=== PATIENT | male | born 1945 | race Two or more races ===

== ENCOUNTER 2025-05-20 16:44 | Emergency (ER) | payer MEDICARE, MEDICAID, SELFPAY ==
[2025-05-20] VITALS (8 sets, daily range): BP systolic 147–168; BP diastolic 77–91; PULSE 61–114; RESP 16–19; TEMP 36.4–36.7; O2SAT 0–97; BMI 28.2
--- NOTE | 2025-05-20 16:51 | XR_ITS ---
Examination: CT cervical spine without contrast 2-D sagittal reconstructions 2-D coronal reconstructions 3-D reconstructions. Date and time: May 20, 2025, 1739 hours INDICATIONS: Patient fell today with injury to the neck, neck pain CTDI:vol (mGy) 13.6 DLP: (mGycm) 293 Technique: Multiple 2 mm axial sections of the cervical spine have been obtained. The coronal and sagittal reconstructions have been obtained. 3-D reconstructions have been obtained. Low dose protocols were performed. One or more of the following dose reduction techniques were used; automated exposure control, adjustment of the mA and/or KV according to patient size, use of iterative reconstruction technique. Findings: Axial sections demonstrate intact base of the skull. C1 exhibit satisfactory relationship to the odontoid. No acute cervical vertebral body fracture seen. Alignment posterior spinous processes satisfactory. Impression: No acute cervical fracture.
--- NOTE | 2025-05-20 16:51 | XR_ITS ---
Examination: CT brain head without contrast. 2-D sagittal coronal reconstructions Date and time of exam: May 20, 2025, 1737 hours INDICATIONS: Patient fell today with injury to the head, head pain CTDI: vol (mGy): 47.1 DLP: (mGycm): 958 Technique: Multiple CT axial sections of the brain have been obtained, 5 mm slice thickness. Contrast has not been administered. 2-D sagittal, coronal reconstructions have been obtained Low dose protocols were performed. One or more of the following dose reduction techniques were used; automated exposure control, adjustment of the mA and/or KV according to patient size, use of iterative reconstruction technique. Findings: No significant ventricular enlargement. Intra-axial or extra-axial hemorrhage density is not seen. No mass effect or midline shift Basal cisterns are not remarkable. Fourth ventricle is midline. Cranial vault intact. Impression: Negative for acute hemorrhage, mass effect or midline shift
--- NOTE | 2025-05-20 16:51 | XR_ITS ---
Examination: Left hip AP, lateral, AP pelvis 3 views Technique: Hip AP lateral, AP pelvis, 3 views Exam date and time: May 20, 2025, 1709 hours INDICATIONS: Ground-level fall with injury to the left hip, left hip pain FINDINGS: No acute left hip fracture There is a fracture of the medial wall of the acetabulum with up to 12 mm offset of the main fracture fragments There is a fracture of the left inferior pubic ramus Healed right hip fracture IMPRESSION: Displaced fracture medial wall left acetabulum with medial protrusion of the left femoral head Fracture left inferior pubic ramus
--- NOTE | 2025-05-20 16:52 | PD.EDFALL ---
ED Fall Injury RME/HPI General Chief Complaint: Fall Stated Complaint: FALL Time Seen by Provider: 05/20/25 16:47 Arrival date/time: 05/20/25 16:44 80-year-old male patient with significant history of hypertension, chronic A-fib, on Eliquis, was brought in by EMS for evaluation regarding ground-level fall. Patient missed a step and landed on his left hip resulting to pain, severity severe. Patient also complained of contusion to the left forehead no LOC no nausea no vomiting. Denies any neck pain chest pain back pain or abdominal pain. No medication was taken prior to ER visit. Related Data Home Medications ?Medication ?Instructions ?Recorded ?Confirmed tamsulosin 0.4 mg capsule (Flomax) 0.4 mg PO QDAY ##0 02/12/17 09/12/22 finasteride 5 mg tablet 5 mg PO QDAY 01/26/19 09/12/22 amlodipine 5 mg tablet 5 mg PO QDAY 09/03/22 09/12/22 enalapril maleate 10 mg tablet 10 mg PO QDAY 09/03/22 09/12/22 hydrocodone 5 mg-acetaminophen 325 1 tab PO BID PRN Pain 09/03/22 09/12/22 mg tablet Previous Rx's ?Medication ?Instructions ?Recorded apixaban 5 mg tablet (Eliquis) 5 mg PO BID #30 tabs 07/06/22 Held on 09/12/22. Instructions: Resume on 09/14/22. Joseede kelli la primera dosis. Allergies Allergy/AdvReac Type Severity Reaction Status Date / Time bee pollen Allergy Severe Anaphylaxis Verified 09/01/22 10:18 Review of Systems Review of Systems Narrative Review of Systems: Review of system reviewed and within normal limits except mentioned in HPI ED Exam Narrative Physical exam: VITAL SIGNS: Reviewed. GENERAL APPEARANCE: Alert and interactive, follows commands, no acute distress, HEAD AND FACE: Left forehead contusion ENT: PERRL, pink conjunctivitis, eyelid no trauma, Mucous membrane moist. NECK: Supple, nontender, no nuchal rigidity. CHEST: No tenderness, no crepitus, no paradoxical movement, no retractions. LUNGS: Clear, well ventilated, symmetric, no rales, no wheezing, no ronchi, no stridor, good breath sounds bilaterally. HEART: Regular rate, regular rhythm, no murmur, no gallops. ABDOMEN: Soft, positive bowel sounds, nondistended, no guarding, nontender, no rebound, no masses, RECTAL: Deferred. GENITAL: Deferred. NEUROLOGICAL: Gross motor function intact sensory function intact, Appropriate for age. MUSCULOSKELETAL: low back nontender, full range of motion. EXTREMITIES: Left hip tenderness, swelling, shortening, with limitation range of motion. Distal neurovascular status intact., Right pain mild swelling, full range of motion of the time SKIN: Color pink, dry, no rash, no lacerations, no abrasions, no contusions. LYMPHATICS: Deferred. Course Quality Measures none Orders Category Date Time Status Splint / Immobilizer STAT Care 05/20/25 21:[address] cervical spine wo con Stat Exams 05/20/25 16:[address] head/brain wo con Stat Exams 05/20/25 16:51 Completed XR hand RT 2V Stat Exams 05/20/25 17:59 Completed XR hip LT w pelvis 2-3V Stat Exams 05/20/25 16:51 Completed HYDROmorphone INJ [Dilaudid Inj] Med 05/20/25 18:03 Discontinued 1 mg IVP X1 ONE Morphine* Inj Med 05/20/25 16:52 Discontinued 4 mg IVP X1 ONE Vital Signs Vital signs: Vital Signs Temperature 97.6 F 05/20/25 16:46 Pulse Rate 98 05/20/25 16:46 Respiratory Rate 17 05/20/25 16:46 Blood Pressure 168/91 H 05/20/25 16:46 Pulse Oximetry (%) 95 05/20/25 16:46 Oxygen Delivery Method Room Air 05/20/25 16:46 Fall MDM Narrative MDM Narrative:: 80-year-old male patient with significant history of hypertension, chronic A-fib, on Eliquis, was brought in by EMS for evaluation regarding ground-level fall. Patient missed a step and landed on his left hip resulting to pain, severity severe. Patient also complained of contusion to the left forehead no LOC no nausea no vomiting. Denies any neck pain chest pain back pain or abdominal pain. No medication was taken prior to ER visit. CT scan of the head came back unremarkable. CT scan of the neck came back unremarkable. 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 X-ray of the right thumb showed small intra-articular fracture of the thumb results discussed with the family. Thumb spica brace was applied distal neurovascular status intact post application of thumb spica brace Patient is to be transferred to trauma center with orthopedic trauma available. None Plan of care discussed with the family who agrees to be transferred. Patient was accepted to [facility] Patient data External records reviewed:: None Clinical information provided by:: patient and family Social determinants that could affect healthcare access:: none Patient has the following chronic illnesses:: Hypertension chronic A-fib How is presenting disease/condition affected by chronic disease/condition?: uneffected by Evaluation data The following diagnostics were reviewed and interpreted by me:: radiology exam(s) Lab and/or radiology exams considered but not ordered:: None Interpretation Summary: See above Medications / Prescriptions Medications or Prescriptions considered but not ordered:: None Medication administrations:: Medication Administration History Discontinued Medications Hydromorphone HCl (Hydromorphone Inj 2 Mg/Ml Vial) 1 mg IVP X1 ONE Stop: 05/20/25 18:04 Last Admin: 05/20/25 18:15 Dose: 1 mg Documented By: MARCO A Morphine Sulfate (Morphine Sulf Inj 4 Mg/Ml Vial) 4 mg IVP X1 ONE Stop: 05/20/25 16:53 Last Admin: 05/20/25 17:01 Dose: 4 mg Documented By: MARCO A Morphine, Dilaudid Consultations Consultation(s) initiated? (list below): No Diagnosis Fall Differential Diagnosis: other (Fall, acetabular fracture, hip pain, thumb pain,) Most likely diagnosis given after review of the tests above:: Fall, acetabular fracture with protrusio acetabuli,, thumb fracture Admission Indicated Admission indicated?: not indicated (Transferred) Admission Request Was there a request for admission?: No Disposition Plan Disposition Plan: Transfer Discharge Plan Plan Patient Disposition: [facility] Acute Care [facility] Pt Being Transferred to: [facility] Prescriptions/Referrals Prescriptions/Med Rec: No Action tamsulosin [Flomax] 0.4 MG capsule,extended release 24hr 0.4 mg PO QDAY Qty: 0 finasteride 5 mg Tablet 5 mg PO QDAY Eliquis 5 mg tablet 5 mg PO BID Qty: 30 0RF enalapril maleate 10 mg Tablet 10 mg PO QDAY amlodipine 5 mg Tablet 5 mg PO QDAY hydrocodone-acetaminophen 5-325 mg tablet 1 tab PO BID PRN (Reason: Pain) Referrals: Fe Jackson PA-C [Primary Care Provider, Family Practice] - In 1 week Problem List Clinical Impression: Fall, Acetabulum fracture, left, Fracture of thumb Patient/Caregiver Discharge Instructions Print Language: Faroese Stand Alone Forms: Mend[employer] Award Info., Patient Portal Info Letter
[2025-05-20] MEDS: MORPHINE SULF INJ 4 MG/ML VIAL IVP (17:01)
--- NOTE | 2025-05-20 17:59 | XR_ITS ---
EXAMINATION: Right hand 2 views TECHNIQUE: AP lateral right hand 2 views INDICATIONS: Patient fell today with injury to the first digit, first digit pain. FINDINGS: Small acute appearing chip fracture off the base of the proximal phalanx first digit No significant displacement Severe osteopenia IMPRESSION: Small acute intra-articular chip fracture off the base of the proximal phalanx first digit
[2025-05-20] MEDS: HYDROmorphone INJ 2 MG/ML VIAL 1 MG IVP (18:15)
== END 2025-05-20 23:48 | disposition short-term general hospital (02) ==
PROVIDERS: Emergency Provider Emergency Medicine; PCP Physician Assistant
DX: S32.472A Displaced fracture of medial wall of left acetabulum, initial encounter for closed fracture (principal); S62.514A Nondisplaced fracture of proximal phalanx of right thumb, initial encounter for closed fracture; S00.83XA Contusion of other part of head, initial encounter; S19.9XXA Unspecified injury of neck, initial encounter; W18.39XA Other fall on same level, initial encounter
CPT/HCPCS: 70450; 72125; 73120; 73502; 99283; J1171; J2270